=== PATIENT | male | born 1980 | race Caucasian/White ===

== ENCOUNTER 2017-10-14 19:03 | Emergency (ER) | payer OTHER ==
[~2017-10-14] VITALS: Ht 188 cm; Wt 130.0 kg
[2017-10-14 19:10] VITALS: BP 173/79; PULSE 112; RESP 20; TEMP 98.8; O2SAT 95
[2017-10-14] MEDS ORDERED: CETI-1 PO (19:20)
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
[2017-10-14] MEDS ORDERED: ACETAMINOPHEN/CODEINE 300 MG/30 MG TAB PO ONE (19:30)
[2017-10-14] MEDS ORDERED: ONDANSETRON ODT 4 MG TAB PO ONE (19:30)
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
[2017-10-14] MEDS ORDERED: NORC5TAB PO (20:51)
[2017-10-14] MEDS ORDERED: CYCL10TA PO (20:51)
== END 2017-10-14 21:04 | disposition home or self-care (01) ==
LOC: NEPD 19:03
DX: R51 Headache (principal); M54.2 Cervicalgia; M54.5 Low back pain; V49.88XA Car occupant (driver) (passenger) injured in other specified transport accidents, initial encounter
CPT/HCPCS: 70450; 72100; 72125; 99285